=== PATIENT | male | born 1980 | race Caucasian/White ===

== ENCOUNTER 2017-12-04 10:22 | Emergency (ER) | payer MEDICAID ==
[2017-12-04 10:31] VITALS: PULSE 110; RESP 18; TEMP 97.4
[2017-12-04] MEDS ORDERED: ONDANSETRON ODT 4 MG TAB PO STA (11:14)
--- NOTE | 2017-12-04 11:20 | ED ---
General Adult HPI - General Chief complaint: Nausea/Vomiting/Diarrhea Stated complaint: Vomiting Time Seen by Provider: 12/04/17 11:09 Source: patient, RN notes reviewed Mode of arrival: ambulatory Limitations: no limitations - History of Present Illness Initial comments: Patient 36-year-old male who presents emergency room today with a chief complaint of symptoms of nausea vomiting and fever that started earlier this morning. 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 He states he got home with little nauseated had an episode of vomiting. He states he was able sleep for a few hours woke up a few more episodes of vomiting. States checked his temperature had a slight fever. Patient does admit that he is feeling better with the nausea at this time. Patient states she is worried about influenza. He does admit some body aches. He admits that he's had some upper respiratory symptoms for the last week. He denies any other complaints currently. Patient denies any recent shortness of breath, chest pain, back pain , abdominal pain, numbness or tingling, dysuria or hematuria, constipation or diarrhea, headaches or visual changes, or any other complaints. - Related Data Home Medications Medication Instructions Recorded Confirmed Lisinopril [Zestril] 10 mg PO DAILY@1600 12/04/17 12/04/17 Multivitamins, Thera [Multivitamin 1 tab PO DAILY@1600 12/04/17 12/04/17 (formulary)] Previous Rx's Medication Instructions Recorded Ondansetron Odt [Zofran ODT] 4 mg PO Q8HR PRN #20 tab 12/04/17 Oseltamivir [Tamiflu] 75 mg PO Q12HR 5 Days cap 12/04/17 Allergies Allergy/AdvReac Type Severity Reaction Status Date / Time No Known Allergies Allergy Verified 12/04/17 11:08 Review of Systems ROS Statement: Those systems with pertinent positive or pertinent negative responses have been documented in the HPI. ROS Other: All systems not noted in ROS Statement are negative. Past Medical History Past Medical History: Hypertension History of Any Multi-Drug Resistant Organisms: None Reported Past Surgical History: No Surgical Hx Reported Past Psychological History: No Psychological Hx Reported Smoking Status: Never smoker Past Alcohol Use History: None Reported Past Drug Use History: None Reported General Exam - General Exam Comments Initial Comments: General: The patient is awake and alert, in no distress, and does not appear acutely ill. Eye: Pupils are equal, round and reactive to light, extra-ocular movements are intact. No nystagmus. There is normal conjunctiva bilaterally. No signs of icterus. Ears, nose, mouth and throat: There are moist mucous membranes and no oral lesions. Neck: The neck is supple, there is no tenderness or JVD. Cardiovascular: There is a regular rate and rhythm. No murmur, rub or gallop is appreciated. Respiratory: Lungs are clear to auscultation, respirations are non-labored, breath sounds are equal. No wheezes, stridor, rales, or rhonchi. Musculoskeletal: Normal ROM, no tenderness. Strength 5/5. Sensation intact. Pulses equal bilaterally 2+. Neurological: A&O x 3. CN II-XII intact, There are no obvious motor or sensory deficits. Coordination appears grossly intact. Speech is normal. Skin: Skin is warm and dry and no rashes or lesions are noted. Psychiatric: Cooperative, appropriate mood & affect, normal judgment. Limitations: no limitations Course Vital Signs 12/04/17 12/04/17 10:29 11:27 Temperature 97.4 F L Pulse Rate 110 H Respiratory 18 Rate Blood Pressure 143/95 123/73 O2 Sat by Pulse 97 96 Oximetry Medical Decision Making - Medical Decision Making Patient reexamined at this time shows no signs of distress. Patient's influenza test is negative. Emergency room. Was discussed about possibility of being a false negative. Patient advised that if symptoms consistent bodyaches and fever that he may begin Tamiflu. We'll provide a prescription. He is feeling better after Zofran here the emergency room. He did not want to do any IV or lab tests at this time. States is feeling well. Will be discharged home with nausea medication advised to continue with oral hydration. Advised to follow-up return if symptoms increase or worsen. - Lab Data Lab Results 12/04/17 Range/Units 11:30 Influenza Type A RNA Not Detected (Not Detectd) Influenza Type B (PCR) Not Detected (Not Detectd) Disposition Clinical Impression: Nausea & vomiting Disposition: HOME SELF-CARE Condition: Good Instructions: Acute Nausea and Vomiting (ED) Additional Instructions: Please use medication as discussed. Please follow-up with family doctor in the next 2 days of symptoms have not improved. Please return to emergency room if the symptoms increase or worsen or for any other concerns. Prescriptions: Ondansetron Odt [Zofran ODT] 4 mg PO Q8HR PRN #20 tab PRN Reason: Nausea Oseltamivir [Tamiflu] 75 mg PO Q12HR 5 Days cap Referrals: Daniella Bella MD [Primary Care Provider] - 1-2 days Time of Disposition: 12:06
[2017-12-04 11:29] VITALS: BP 123/73
== END 2017-12-04 12:25 | disposition home or self-care (01) ==
LOC: EC 10:22
DX: R11.2 Nausea with vomiting, unspecified (principal); R50.9 Fever, unspecified; M79.1 Myalgia; I10 Essential (primary) hypertension; Z79.899 Other long term (current) drug therapy
CPT/HCPCS: 87502; 99284